=== PATIENT | female | born 2000 | race Caucasian/White ===

== ENCOUNTER 2022-11-25 20:20 | Emergency (ER) | payer MEDICAID ==
[~2022-11-25] VITALS: Ht 167.6 cm; Wt 68.2 kg
[2022-11-25 20:44] VITALS: BP 142/93; PULSE 117; RESP 18; TEMP 98.9; O2SAT 98
[2022-11-25 21:06] LABS: BILIRUBIN,URINE NEGATIVE (Neg); CLARITY,URINE SLIGHTLY CLOUDY (Clear); COLOR,URINE YELLOW (Yellow); GLUCOSE, URINE NEGATIVE (Neg); KETONES,URINE TRACE mg/dl (Neg); LEUKOCYTE ESTERASE ,URINE NEGATIVE (Neg); NITRITES, URINE NEGATIVE (Neg); OCCULT BLOOD,URINE NEGATIVE (Neg); PROTEIN,URINE NEGATIVE (Neg); UROBILINOGEN,URINE 0.2 E.U/dL (0.2-1.0)
[2022-11-25 21:07] LABS: URINE HCG NEGATIVE (NEG)
[2022-11-25 21:08] LABS: UA COLLECTION TYPE CLN CATCH MIDSTREAM
[2022-11-25 21:14] LABS: WBC,URINE 0-4 /HPF (0-4)
[2022-11-25 21:15] LABS: BACTERIA,URINE 2+ /HPF (Neg); MUCUS STRANDS FEW /LPF (Neg); SQUAMOUS EPITHELIAL CELL,UR MANY /LPF (FEW)
[2022-11-25] MEDS ORDERED: AZIT-164 PO (21:24)
[2022-11-25] MEDS ORDERED: DEC4T PO (21:24)
== END 2022-11-25 21:51 | disposition home or self-care (01) ==
LOC: ER 20:21
DX: J12.9 Viral pneumonia, unspecified (principal)
CPT/HCPCS: 81001; 81025; 99283